=== PATIENT | female | born 1950 | race Hispanic/Latino ===

== ENCOUNTER 2023-12-09 19:16 | Emergency (ER) | payer OTHER ==
[~2023-12-09] VITALS: Ht 154.9 cm; Wt 59.0 kg
[2023-12-09] MEDS: ACETAMINOPHEN 500 MG TABLET PO ONE (20:05)
[2023-12-09] MEDS: IBUPROFEN 600 MG TABLET PO ONE (20:05)
[2023-12-09] MEDS ORDERED: KETO10 PO (22:41)
[2023-12-09 23:15] VITALS: BP 138/72; PULSE 80; RESP 16; O2SAT 99
[2023-12-09] MEDS: KETOROLAC 30MG VIAL (30MG/ML) IM ONE (23:18)
[2023-12-11] MEDS ORDERED: SIMV40TA59 PO (15:36)
[2023-12-11] MEDS ORDERED: MEMA5TAB16 PO (15:36)
[2023-12-11] MEDS ORDERED: LEVO75TA10 PO (15:36)
== END 2023-12-09 23:18 | disposition home or self-care (01) ==
LOC: EDH 19:16
DX: S52.612A Displaced fracture of left ulna styloid process, initial encounter for closed fracture (principal); S52.501A Unspecified fracture of the lower end of right radius, initial encounter for closed fracture; W18.39XA Other fall on same level, initial encounter; Y93.89 Activity, other specified; Y92.89 Other specified places as the place of occurrence of the external cause; Y99.8 Other external cause status
CPT/HCPCS: 29125; 73090; 73110

== ENCOUNTER → 2025-01-06 | Outpatient (CLI) | payer OTHER ==
[~2025-01-06] MED LIST: KETO10 PO; LEVO75TA10 PO; MEMA5TAB16 PO; SIMV40TA59 PO
--- NOTE | 2025-01-06 10:39 | HMCIMG ---
DEXA BONE DENSITY SURVEY HISTORY: Menopause COMPARISON: None FINDINGS: Bone densitometry study was performed. Bone mineral density of the lumbar spine is 0.834 gram per centimeter square which corresponds to a T score of -1.9 and a Z score of 0.4. Bone mineral density of the left hip is 0.806 grams per centimeter square which corresponds to a T score of -1.2 and a Z score of 0.6. IMPRESSION: 1. Osteopenia of the lumbar spine and left hip.
== END | disposition home or self-care (01) ==
LOC: RAH 09:10
PROVIDERS: ATTEND Internal Medicine
DX: M81.0 Age-related osteoporosis without current pathological fracture (principal); N95.9 Unspecified menopausal and perimenopausal disorder; M85.89 Other specified disorders of bone density and structure, multiple sites
CPT/HCPCS: 77080